=== PATIENT | female | born 1955 | race Caucasian/White ===

== ENCOUNTER → 2017-05-30 | Outpatient (CLI) | payer BC ==
[~2017-05-30] VITALS: Ht 167.6 cm; Wt 80.7 kg
[~2017-05-30] MED LIST: ALEVE220 MG PO; CYMBALTA30 MG PO; DUONEB 2.5-0.5 M3 ML IPPB; LIPITOR20 MG PO; MELATONIN1 MG/4 ML PO; NEURONTIN300 MG PO; PEG 3350 ELEC4000 ML PO; PROAIR HFA8.5 GM IH; PROGESTERONE100 MG PO; SINGULAIR10 MG PO; VITAMIN D2000 UNI1 PO; VIVELLE-DOT0.0375 MG TD
== END | disposition home or self-care (01) ==
LOC: AMB 11:21
DX: Z12.11 Encounter for screening for malignant neoplasm of colon (principal); K64.8 Other hemorrhoids; D12.0 Benign neoplasm of cecum; K63.5 Polyp of colon; G89.4 Chronic pain syndrome; I10 Essential (primary) hypertension; Z79.890 Hormone replacement therapy; J45.991 Cough variant asthma; E78.5 Hyperlipidemia, unspecified; E66.9 Obesity, unspecified; G47.9 Sleep disorder, unspecified; E55.9 Vitamin D deficiency, unspecified; Z68.28 Body mass index [BMI] 28.0-28.9, adult; Z82.49 Family history of ischemic heart disease and other diseases of the circulatory system; Z84.1 Family history of disorders of kidney and ureter; Z83.49 Family history of other endocrine, nutritional and metabolic diseases
CPT/HCPCS: 88305; J2250